=== PATIENT | female | born 1965 | race Caucasian/White ===

== ENCOUNTER 2022-11-11 09:19 | Emergency (ER) | payer OTHER ==
[~2022-11-11] VITALS: Ht 165.1 cm; Wt 70.3 kg
[~2022-11-11 09:19] MED LIST: CIPRODEX OTIC7.5 ML OT; CLEOCIN HCL300 MG PO
== END 2022-11-11 10:57 | disposition home or self-care (01) ==
LOC: ER 09:19
DX: H10.9 Unspecified conjunctivitis (principal); Z88.0 Allergy status to penicillin; Z88.2 Allergy status to sulfonamides